=== PATIENT | male | born 1945 | race Caucasian/White ===

== ENCOUNTER 2021-12-13 12:19 | Outpatient (CLI) | payer MEDICARE ==
[2021-12-13] MEDS ORDERED: Iopamidol 370 76% 100 ML VIAL ONE (16:00)
== END 2021-12-13 12:20 | disposition home or self-care (01) ==
LOC: CT 12:19
PROVIDERS: ATTEND Internal Medicine Cardiovascular Disease
DX: I77.810 Thoracic aortic ectasia (principal); N28.1 Cyst of kidney, acquired; K57.30 Diverticulosis of large intestine without perforation or abscess without bleeding; E04.1 Nontoxic single thyroid nodule
CPT/HCPCS: 71275; 82565; Q9967

== ENCOUNTER 2023-02-11 08:51 | Outpatient (CLI) | payer MEDICARE | END 2023-02-11 08:52 | disposition home or self-care (01) | LOC: BICRAD 08:51 | PROVIDERS: ATTEND Nurse Practitioner Family | DX: M25.551 Pain in right hip (principal); M16.11 Unilateral primary osteoarthritis, right hip ==